=== PATIENT | male | born 1990 | race African-American/Black ===

== ENCOUNTER 2019-07-08 03:56 | Emergency (ER) | payer SELFPAY ==
[~2019-07-08] VITALS: Ht 170.2 cm; Wt 68.2 kg
[~2019-07-08 03:56] MED LIST: NOCURR
[2019-07-08] MEDS ORDERED: LORazepam 2 MG/ML VIAL IM ONE (04:15)
[2019-07-08 04:29] VITALS: BP 133/87
[2019-07-08 04:35] LABS: AMPHET/METH SCREEN,URINE NEGATIVE (NEGATIVE); BARBITURATE SCREEN, URINE NEGATIVE (NEGATIVE); BENZODIAZEPINES SCREEN,URINE NEGATIVE (NEGATIVE); CANNABINOID SCREEN,URINE NEGATIVE (NEGATIVE); COCAINE SCREEN,URINE NEGATIVE (NEGATIVE); METHADONE SCREEN, URINE NEGATIVE (NEGATIVE); OPIATE SCREEN,URINE NEGATIVE (NEGATIVE)
[2019-07-08 04:36] LABS: PHENCYCLIDINE SCREEN,URINE NEGATIVE (NEGATIVE)
[2019-07-08] MEDS ORDERED: AMMONIA 1 EA AMP IH ONE (06:00)
== END 2019-07-08 06:09 | disposition home or self-care (01) ==
LOC: EMS 04:02
DX: F10.129 Alcohol abuse with intoxication, unspecified (principal); R40.1 Stupor; Y90.6 Blood alcohol level of 120-199 mg/100 ml
CPT/HCPCS: 36415; 80307; 94640; 96372; 99283; G0480; J2060

== ENCOUNTER 2025-04-05 16:24 | Emergency (ER) | payer OTHER ==
[~2025-04-05] VITALS: Ht 170.2 cm; Wt 75.0 kg
[2025-04-05 16:26] VITALS: BP 128/91; PULSE 78; RESP 18; TEMP 98.4; O2SAT 99
[2025-04-05] MEDS ORDERED: CEPH-558 PO (18:46)
[2025-04-05] MEDS: BACITRACIN 28 GM OINTMENT TP ONE (18:55)
[2025-04-05] MEDS: LIDOCAINE 1%/EPI 1:200,000/PF 10 ML VIAL SQ ONE (18:55)
== END 2025-04-05 19:13 | disposition home or self-care (01) ==
LOC: EMS 16:24
DX: L91.0 Hypertrophic scar (principal); L03.312 Cellulitis of back [any part except buttock and flank]; Z91.013 Allergy to seafood
CPT/HCPCS: 99283; 88305; 96372; J0690; J3490